=== PATIENT | female | born 1985 | race Caucasian/White ===

== ENCOUNTER → 2016-05-16 | Outpatient (CLI) | payer BC ==
--- NOTE | 2016-05-17 09:05 | RAD ---
Obstetrical ultrasound, 05/16/2016: History: Check viability Transabdominal scans were obtained. The uterus contains a single fetus. The crown-rump length is 5.9 cm compatible with a gestational age of 12-13 weeks. This yields a sonographic EDC of 11/24/2016. Normal activity and heart motion were seen. The heart rate was 178 bpm. The placenta lies posteriorly. A normal amount of amniotic fluid is evident. The cervical length is 4.8 cm. The ovaries are unremarkable. IMPRESSION: Single viable intrauterine fetus of 12-13 weeks gestational age.
== END | disposition home or self-care (01) ==
LOC: US 15:19
PROVIDERS: ATTEND Midwife, Lay
DX: O76 Abnormality in fetal heart rate and rhythm complicating labor and delivery (principal); Z3A.13 13 weeks gestation of pregnancy
CPT/HCPCS: 76801

== ENCOUNTER → 2016-11-01 | Outpatient (CLI) | payer BC ==
--- NOTE | 2016-11-01 11:43 | KCIC ---
Clinical Indication: Parental anxiety. Reevaluation of placental location. Technique: Study is dated November 01, 2016. No comparison study is available at this [facility]. Transabdominal imaging was performed. Transvaginal imaging to better evaluate the cervix was performed. Findings: There is a single intrauterine gestation in cephalic presentation. The placenta is posterior and fundal in location without evidence of placental previa. Cervix is long and closed. It measures 4 cm. SERVANDO measured 16.4 cm. This value is within normal limits. Biometrical data is as follows: BPD = 9.55 cm, with a corresponding gestational age of 39 weeks 0 days. HC = 33.10 cm, with a corresponding gestational age of 37 weeks 5 days. AC = 33.90 cm, with a corresponding gestational age of 37 weeks 6 days. FL = 7.31 cm, with a corresponding gestational age of 37 weeks 3 days. Ratio of head circumference to abdominal circumference is 0.98. Cephalic index is increased at 94 percent. Overall, the estimated sonographic gestational age is 38 weeks 0 days for an estimated date of delivery of November 15, 2016. Any earlier ultrasound would be more accurate for purposes of determining due date. Estimated weight is 3324 g, 69th percentile. survey was limited given late third trimester patient and body habitus. movement is documented. heart tones are 152 bpm with 4 chamber heart documented. Three-vessel cord is documented although the cord insertion is not well evaluated. Stomach, kidneys, and bladder are unremarkable. Evaluation of the spine, maxillofacial region, intracranial contents, and extremities is limited. IMPRESSION: 1. Single live intrauterine measures 38 weeks 0 days with heart tones of 152 bpm. 2. Increased cephalic index. Increased cephalic index is nonspecific but can be a finding of brachiocephaly. However, given difficulties in evaluating the head this could be artifactual. Electronically signed by: Nj Rangel MD (11/01/2016 11:40 AM) [id number]
== END | disposition home or self-care (01) ==
LOC: KCIC US 09:39
DX: O99.343 Other mental disorders complicating pregnancy, third trimester (principal); Z3A.38 38 weeks gestation of pregnancy
CPT/HCPCS: 76805; 76817